=== PATIENT | male | born 1950 | race Hispanic/Latino ===

== ENCOUNTER 2024-12-11 07:08 | Inpatient (IN) | payer MEDICARE ==
[2024-12-09 11:45] LABS: BASOPHILS % 0.4 % (0.0-1.0); EOSINOPHILS % 1.2 % (0.0-6.0); LYMPHOCYTES % 12.2 % (18.0-39.1); MONOCYTES % 8.4 % (4.4-11.3); NEUTROPHILS % 77.5 % (38.7-80.0); RED CELL DISTRIBUTION WIDTH 14.2 % (11.7-14.4)
[2024-12-09 12:19] LABS: EST GLOMERULAR FILTRATION RATE 90.0 ML/MIN (>=60)
[~2024-12-11] VITALS: Ht 165.1 cm; Wt 85.8 kg
[~2024-12-11 07:08] MED LIST: ASPIRIN81 MG PO; FINASTERIDE5 MG PO; FLOMAX0.4 MG PO; LIPITOR10 MG PO
[2024-12-11] MEDS: SODIUM CHLORIDE 0.9% 1000ML 1,000 ML ONE (07:50)
[2024-12-11] MEDS: CEFTRIAXONE 1 GM VIAL ONE (07:56)
[2024-12-11] MEDS: GENTAMICIN 80MG/NS 100 ML 200 ML IV ONE (07:57)
[2024-12-11] MEDS ORDERED: PROPOFOL IV EMULSION 10 MG/ML 20 ML VIAL ONE (08:38)
[2024-12-11] MEDS ORDERED: FENTANYL CITRATE/PF 100MCG/2 ML INJ ONE ×2 (08:38→09:54)
[2024-12-11] MEDS ORDERED: LIDOCAINE HCL 2% LOCAL INJ 5 ML SDV VIAL INJ ONE (08:39)
[2024-12-11] MEDS ORDERED: ROCURONIUM BROMIDE 1 ML IV ONE (08:39)
[2024-12-11] MEDS ORDERED: ONDANSETRON HCL INJ 2MG/ML 2ML 2 MG/ML VIAL ONE (09:28)
[2024-12-11] MEDS ORDERED: GLYCOPYRROLATE INJ 0.2 MG/ML VIAL ONE ×2 (09:28→10:48)
[2024-12-11] MEDS ORDERED: DEXAMETHASONE SOD PHOS INJ 4 MG/ML SDV ONE (09:28)
[2024-12-11] MEDS ORDERED: FAMOTIDINE 20 MG/2 ML VIAL IV ONE (09:28)
[2024-12-11] MEDS ORDERED: EPHEDRINE SULFATE INJ 50 MG/ML VIAL ONE (09:37)
[2024-12-11] MEDS ORDERED: NEOSTIGMINE 1 MG/ML 10ML VIAL ONE (10:48)
[2024-12-11] MEDS ORDERED: ONDANSETRON HCL INJ 2MG/ML 2ML 2 MG/ML VIAL IV PRN (11:00)
[2024-12-11] MEDS ORDERED: ACETAMINOPHEN 1000 MG/100 ML IV PRN (11:00)
[2024-12-11] MEDS ORDERED: DIPHENHYDRAMINE HCL 25 MG CAP PO PRN (11:00)
[2024-12-11] MEDS: MEPERIDINE HCL INJ 25 MG/ML VIAL ONE (11:35)
[2024-12-11] MEDS: PHENAZOPYRIDINE HCL 100 MG TAB ONE (11:40)
[2024-12-11 12:00] LABS: EST GLOMERULAR FILTRATION RATE 96.0 ML/MIN (>=60)
[2024-12-11] MEDS: ACETAMINOPHEN/CODEINE 300MG - 30MG TAB ONE (12:10)
[2024-12-11 13:06] LABS: BASOPHILS % 0.7 % (0.0-1.0); EOSINOPHILS % 1.2 % (0.0-6.0); LYMPHOCYTES % 10.3 % (18.0-39.1); MONOCYTES % 4.4 % (4.4-11.3); NEUTROPHILS % 82.9 % (38.7-80.0); RED CELL DISTRIBUTION WIDTH 14.4 % (11.7-14.4)
[2024-12-11 14:29] VITALS: PULSE 63; RESP 18; O2SAT 98
[2024-12-11] MEDS: SODIUM CHLORIDE 0.9% 1000ML 1,000 ML IV SCH (14:37)
[2024-12-11] MEDS: PHENAZOPYRIDINE HCL 100 MG TAB PO PRN (14:52)
[2024-12-11 16:00] VITALS: BP 135/75; PULSE 68; RESP 18; TEMP 97.5; O2SAT 100
[2024-12-11] MEDS: NYSTATIN/TRIAMCINOLONE 15 GM CR TOP SCH (17:38)
[2024-12-11] MEDS: SENNA-S TABLET PO SCH (17:38)
[2024-12-11 20:00] VITALS: BP 141/81; PULSE 100; RESP 20; TEMP 98.1; O2SAT 98
[2024-12-11 20:05] VITALS: PULSE 97; RESP 18; O2SAT 98
[2024-12-11 21:00] VITALS: BP 141/81; PULSE 100; RESP 20; TEMP 98.1; O2SAT 98
[2024-12-12] VITALS (9 sets, daily range): BP systolic 126–157; BP diastolic 73–86; PULSE 66–81; RESP 18–22; TEMP 97.8–98.8; O2SAT 94–100
[2024-12-12 06:20] LABS: BASOPHILS % 0.2 % (0.0-1.0); EOSINOPHILS % 0.2 % (0.0-6.0); LYMPHOCYTES % 7.9 % (18.0-39.1); MONOCYTES % 7.3 % (4.4-11.3); NEUTROPHILS % 83.7 % (38.7-80.0); RED CELL DISTRIBUTION WIDTH 14.0 % (11.7-14.4)
[2024-12-12 07:17] LABS: EST GLOMERULAR FILTRATION RATE 92.0 ML/MIN (>=60)
[2024-12-12] MEDS: ACETAMINOPHEN/CODEINE 300MG - 30MG TAB PO PRN (08:17)
[2024-12-12] MEDS: TAMSULOSIN HCL 0.4 MG CAP PO SCH (15:50)
[2024-12-12] MEDS: ATORVASTATIN 10 MG TAB PO SCH (20:43)
[2024-12-13] VITALS (10 sets, daily range): BP systolic 128–164; BP diastolic 77–89; PULSE 65–93; RESP 15–20; TEMP 97.7–98.7; O2SAT 95–100
[2024-12-13 05:14] LABS: BASOPHILS % 0.5 % (0.0-1.0); EOSINOPHILS % 1.6 % (0.0-6.0); LYMPHOCYTES % 17.8 % (18.0-39.1); MONOCYTES % 8.1 % (4.4-11.3); NEUTROPHILS % 71.5 % (38.7-80.0); RED CELL DISTRIBUTION WIDTH 14.3 % (11.7-14.4)
[2024-12-13 05:44] LABS: EST GLOMERULAR FILTRATION RATE 93.0 ML/MIN (>=60)
[2024-12-13] MEDS: FINASTERIDE 5 MG TAB PO SCH (09:53)
[2024-12-13] MEDS ORDERED: MAGNESIUM/ALUMINUM/SIMETHICONE 30 ML UDC PO PRN (10:00)
[2024-12-14] VITALS (10 sets, daily range): BP systolic 121–136; BP diastolic 72–87; PULSE 79–102; RESP 15–19; TEMP 97.4–98.6; O2SAT 95–99
[2024-12-14 07:30] LABS: BASOPHILS % 0.4 % (0.0-1.0); EOSINOPHILS % 1.6 % (0.0-6.0); LYMPHOCYTES % 13.5 % (18.0-39.1); MONOCYTES % 8.4 % (4.4-11.3); NEUTROPHILS % 75.7 % (38.7-80.0); RED CELL DISTRIBUTION WIDTH 14.2 % (11.7-14.4)
[2024-12-14 07:54] LABS: EST GLOMERULAR FILTRATION RATE 97.0 ML/MIN (>=60)
[2024-12-15] VITALS (11 sets, daily range): BP systolic 114–147; BP diastolic 73–91; PULSE 73–88; RESP 16–20; TEMP 97.5–98.8; O2SAT 96–100
[2024-12-15 08:10] LABS: BASOPHILS % 0.4 % (0.0-1.0); EOSINOPHILS % 2.4 % (0.0-6.0); LYMPHOCYTES % 14.0 % (18.0-39.1); MONOCYTES % 8.5 % (4.4-11.3); NEUTROPHILS % 74.4 % (38.7-80.0); RED CELL DISTRIBUTION WIDTH 14.0 % (11.7-14.4)
[2024-12-15 08:29] LABS: EST GLOMERULAR FILTRATION RATE 98.0 ML/MIN (>=60)
[2024-12-16 07:26] VITALS: BP 129/80; PULSE 88; RESP 20; TEMP 98.3; O2SAT 97
[2024-12-16 07:35] VITALS: PULSE 82; RESP 16; O2SAT 97
[2024-12-16 09:00] VITALS: BP 129/80; PULSE 82; RESP 16; TEMP 98.3; O2SAT 97
[2024-12-16 11:27] VITALS: BP 129/75; PULSE 91; RESP 19; TEMP 98.2; O2SAT 100
[2024-12-16 11:29] VITALS: PULSE 89; RESP 16; O2SAT 98
[2024-12-16 15:43] VITALS: BP 136/80; PULSE 85; RESP 17; TEMP 97.4; O2SAT 99
[2024-12-16] MEDS ORDERED: LEVOFLOXACIN500 MG PO (17:45)
== END 2024-12-16 20:00 | disposition home or self-care (01) | DRG 709 ==
LOC: OR 07:08 → PACU V 10:58 → MED/SURG 13:30
PROVIDERS: ADMIT Urology; ATTEND Urology
PROC: 0T7D8ZZ Dilation of Urethra, Via Natural or Artificial Opening Endoscopic (ICD-10-PCS; 2024-12-11)
PROC: 0T9B70Z Drainage of Bladder with Drainage Device, Via Natural or Artificial Opening (ICD-10-PCS; 2024-12-11)
PROC: 0VNSXZZ Release Penis, External Approach (ICD-10-PCS; principal; 2024-12-11 09:17)
PROC: 0VB08ZZ Excision of Prostate, Via Natural or Artificial Opening Endoscopic (ICD-10-PCS; 2024-12-11 09:17)
DX: N40.1 Benign prostatic hyperplasia with lower urinary tract symptoms (principal); D62 Acute posthemorrhagic anemia; N13.8 Other obstructive and reflux uropathy; N39.0 Urinary tract infection, site not specified; E11.9 Type 2 diabetes mellitus without complications; R31.0 Gross hematuria; E78.5 Hyperlipidemia, unspecified; N32.81 Overactive bladder; N41.9 Inflammatory disease of prostate, unspecified; M17.9 Osteoarthritis of knee, unspecified; N99.89 Other postprocedural complications and disorders of genitourinary system; Z79.82 Long term (current) use of aspirin; Y84.8 Other medical procedures as the cause of abnormal reaction of the patient, or of later complication, without mention of misadventure at the time of the procedure; E66.9 Obesity, unspecified; Z68.31 Body mass index [BMI] 31.0-31.9, adult; Z87.440 Personal history of urinary (tract) infections
CPT/HCPCS: 36415; 71046; 74420; 80048; 83036; 83735; 85025; 88305; 93005; 94799; C1758; J0696; J1100; J1308; J1580; J2003; J2175; J2405; J2710; J7030